=== PATIENT | male | born 1995 ===

== ENCOUNTER 2018-02-22 09:44 | Emergency (ER) | payer BC ==
--- NOTE | 2018-02-22 09:52 | UC ---
Eye Complaint HPI - HPI Summary HPI Summary: 22 yo male presents with b/l eye redness, itchy, and drainage since yesterday. R >L. Worse in the mornings. He does wear contacts and changes them monthly - says he is pretty good about this, maybe a day or two late at times. He thought maybe his eyes were irritated from his contacts, so he changed to new ones yesterday. Denies injury, fever, chills, or vision changes. - History of Current Complaint Stated Complaint: EYE COMPLAINT Time Seen by Provider: 02/22/18 09:52 Hx Obtained From: Patient Onset/Duration: Sudden Onset Timing: Constant Severity Currently: None - Allergies/Home Medications Allergies/Adverse Reactions: Allergies Allergy/AdvReac Type Severity Reaction Status Date / Time No Known Allergies Allergy Verified 02/22/18 09:58 PMH/Surg Hx/FS Hx/Imm Hx - Additional Past Medical History Additional PMH: None Previously Healthy: Yes - Surgical History Surgical History: None - Family History Known Family History: Positive: None - Social History Occupation: Employed Full-time Lives: With Family Alcohol Use: None Substance Use Type: None Smoking Status (MU): Smoker, Current Status Unknown Type: Smokeless Tobacco Amount Used/How Often: 1 can/2-3 days Length of Time of Smoking/Using Tobacco: 4 years Have You Smoked in the Last Year: No - Immunization History Most Recent Tetanus Shot: 2013 Review of Systems Constitutional: Negative Skin: Negative Eyes: Drainage, Eye Redness, Photophobia ENT: Negative Respiratory: Negative Cardiovascular: Negative Gastrointestinal: Negative Neurological: Negative Psychological: Negative All Other Systems Reviewed And Are Negative: Yes Physical Exam - Summary Physical Exam Summary: GENERAL: NAD. WDWN. No pain distress. SKIN: No rashes, sores, lesions, or open wounds. HEENT: Head: AT/NC Eyes: RIGHT EYE: PERRLA. EOM intact without pain. Conjunctiva with moderate erythema and mild clear drainage. Moderate scleral injection. LEFT EYE : PERRLA. EOM intact without pain. Conjunctiva with mild erythema and mild clear drainage. mild scleral injection. Ears: Hearing grossly normal. TMs intact, no bulging, erythema, or edema. Nose: Nasal mucosa pink and moist. NTTP maxillary and frontal sinus. Throat: Posterior oropharynx without exudates, erythema, or tonsillar enlargement. Uvula midline. NECK: Supple. Nontender. No lymphadenopathy. CHEST: CTAB. No r/r/w. No accessory muscle use. Breathing comfortably and in no distress. CV: RRR. Without m/r/g. Pulses intact. Brisk cap refill. NEURO: Alert. CN II-XII grossly intact. PSYCH: Age appropriate behavior. Triage Information Reviewed: Yes Vital Signs: Vital Signs: Temp Pulse Resp BP Pulse Ox 99.0 F 84 18 133/75 100 02/22/18 09:52 02/22/18 09:52 02/22/18 09:52 02/22/18 09:52 02/22/18 09:52 Vital Signs Reviewed: Yes Eye Complaint Course/Dx - Course Course Of Treatment: Fluorescein dye exam performed and in the RIGHT eye a 1.5mm diameter area of uptake was visualized, perhaps representing an early corneal ulcer. No sharon sign. Advised to stop wearing all contacts and switch to glasses. Rx for ofloxacin eye drops and advised to f/u with his eye doctor tomorrow for recheck. - Differential Dx/Diagnosis Provider Diagnoses: Corneal ulcer right eye Discharge - Sign-Out/Discharge Documenting (check all that apply): Patient Departure - Discharge Plan Condition: Stable Disposition: HOME Prescriptions: Ofloxacin 0.3%(Ophth)(Nf) [Ocuflox OPTH 0.3%(NF)] 1 drop BOTH EYES Q3H #1 bottle Patient Education Materials: Corneal Ulcer (ED), Conjunctivitis (ED) Referrals: Faheem Johnson MD [Primary Care Provider] - Additional Instructions: If you develop a fever, shortness of breath, chest pain, new or worsening symptoms - please call your PCP or go to the ED. 1) Please do not wear your contacts until your eyes are healed 2) Please schedule a follow up appointment tomorrow with your eye doctor - Billing Disposition and Condition Condition: STABLE Disposition: Home
[2018-02-22 09:58] VITALS: BP 133/75
[2018-02-22] MEDS ORDERED: Fluorescein Sod TOPICAL 0.6* 0.6 MG TEST OPHTHALMIC ONE (10:05)
== END 2018-02-22 10:32 | disposition home or self-care (01) ==
LOC: UCEAST 09:44
DX: H16.001 Unspecified corneal ulcer, right eye (principal); F17.290 Nicotine dependence, other tobacco product, uncomplicated
CPT/HCPCS: 99202; G0463